=== PATIENT | male | born 1980 | race Caucasian/White ===

== ENCOUNTER 2017-09-27 23:47 | Emergency (ER) | payer BC | END 2017-09-28 01:09 | disposition home or self-care (01) | LOC: ERS 23:47 | DX: L01.00 Impetigo, unspecified (principal); L73.9 Follicular disorder, unspecified; F41.9 Anxiety disorder, unspecified; F90.9 Attention-deficit hyperactivity disorder, unspecified type; Z79.899 Other long term (current) drug therapy | CPT/HCPCS: 99282 ==

== ENCOUNTER 2018-08-03 07:18 | Emergency (ER) | payer MEDICAID ==
--- NOTE | 2018-08-03 08:02 | RAD ---
LEFT KNEE RADIOGRAPHS 4 VIEWS: DATE: 08/03/2018. PROVIDED CLINICAL HISTORY: Knee pain status post injury. FINDINGS: There is a tiny curvilinear thin metallic density seen projecting over the expected location of the p opliteal fossa. This measures about 4-5 mm. There is no evidence for a fracture or other acute osse ous abnormality. Alignment appears anatomic. Joint spaces appear preserved. IMPRESSION: 1. No evidence for an acute osseous abnormality. If there is persistent clinical concern, conservat obie management and followup imaging are advised. 2. Age-indeterminate soft tissue foreign body as above. POS: OFF
[2018-08-03] MEDS ORDERED: Ketorolac Tromethamine 60 MG/2 ML VIAL ONE (08:32)
== END 2018-08-03 08:58 | disposition home or self-care (01) ==
LOC: ERS 07:18 → EDUNIT# 07:18 → ERS 08:58
DX: S39.012A Strain of muscle, fascia and tendon of lower back, initial encounter (principal); M25.562 Pain in left knee; F90.9 Attention-deficit hyperactivity disorder, unspecified type; Z79.899 Other long term (current) drug therapy; W19.XXXA Unspecified fall, initial encounter
CPT/HCPCS: 96372; J1885

== ENCOUNTER 2018-08-28 02:06 | Emergency (ER) | payer MEDICAID ==
[2018-08-28 02:49] LABS: #Eosinphils 0.1 thou/uL (0.0-0.7); #Lymphocytes 2.4 thou/uL (1.20-3.40); #Monocytes 0.6 thou/uL (0.11-0.59); #Neutrophils 5.4 thou/uL (1.40-6.50); %Basophils 0.4 % (0.0-1.0); %Eosinophils 1.5 % (0.0-10.0); %Lymphocytes 28.4 % (21.0-51.0); %Monocytes 6.5 % (0.0-10.0); %Neutrophils 63.3 % (42.0-75.0); Hemoglobin 12.3 g/dL (14.0-18.0); Mean Corpuscular HGB CONC 32.9 g/dL (32.0-36.0); Mean Corpuscular Hemoglobin 26.5 pg (27.0-31.0); Mean Corpuscular Volume 80.6 fL (78.0-98.0); Mean Platelet Volume 7.3 fL (7.4-10.4); Platelet Count 231 thou/uL (130-400); RBC Distribution Width 14.2 % (11.5-14.5); Red Blood Cell (RBC) Count 4.66 mill/uL (4.70-6.10); White Blood Cell (WBC) Count 8.6 thou/uL (4.8-10.8)
[2018-08-28 03:10] LABS: ALT (SGPT) 23 U/L (8-55); AST (SGOT) 23 U/L (5-34); Albumin 3.8 g/dL (3.5-5.0); Alkaline Phosphatase 64 U/L (40-150); Anion Gap 13 mmol/L (10-20); BUN (Urea Nitrogen) 11 mg/dL (8.9-20.6); Bilirubin, Total 0.9 mg/dL (0.2-1.2); Calc. Creatinine Clearance 0 mL/min (70-130); Calcium 9.2 mg/dL (7.8-10.44); Carbon Dioxide 24 mmol/L (22-29); Chloride 106 mmol/L (98-107); Estimated GFR-MDRD Greater than 90; Globulin 3.3 g/dL (2.4-3.5); Glucose 81 mg/dL (70-105); Potassium 3.6 mmol/L (3.5-5.1); Protein, Total 7.1 g/dL (6.0-8.3); Sodium 139 mmol/L (136-145)
[2018-08-28] MEDS ORDERED: Ketorolac Tromethamine 30 MG/ML VIAL ONE (04:59)
[2018-08-28] MEDS ORDERED: Diazepam 5 MG TAB PO SCH (05:30)
--- NOTE | 2018-08-28 08:56 | RAD ---
CHEST 2 VIEWS: Date: 08/28/18 HISTORY: Chest pain. FINDINGS: Left-sided pedicle screws are noted stabilizing the mid thoracic spine. Heart size is normal. The davian gs are clear. IMPRESSION: No acute intrathoracic disease. POS: TPC
== END 2018-08-28 06:24 | disposition home or self-care (01) ==
LOC: ERS 02:06
DX: F41.9 Anxiety disorder, unspecified (principal); R07.89 Other chest pain; F90.9 Attention-deficit hyperactivity disorder, unspecified type; Z79.899 Other long term (current) drug therapy
CPT/HCPCS: 36415; 71046; 80053; 84484; 85025; 93005; 96372; J1885

== ENCOUNTER 2018-10-18 04:35 | Emergency (ER) | payer OTHER ==
[2018-10-18] MEDS ORDERED: Diazepam 5 MG TAB ONE (05:30)
[2018-10-18] MEDS ORDERED: Ketorolac Tromethamine 60 MG/2 ML VIAL ONE (05:30)
== END 2018-10-18 06:00 | disposition home or self-care (01) ==
LOC: ERS 04:35
DX: M62.838 Other muscle spasm (principal); F90.9 Attention-deficit hyperactivity disorder, unspecified type; F41.9 Anxiety disorder, unspecified; Z79.899 Other long term (current) drug therapy
CPT/HCPCS: 96372; J1885

== ENCOUNTER 2018-10-25 06:09 | Emergency (ER) | payer OTHER ==
[2018-10-25] MEDS ORDERED: Ketorolac Tromethamine 30 MG/ML VIAL ONE (06:23)
[2018-10-25] MEDS ORDERED: Cyclobenzaprine 10 MG TAB ONE (06:23)
[2018-10-25] MEDS ORDERED: Acetaminophen 500 MG TAB ONE (06:23)
--- NOTE | 2018-10-25 07:47 | RAD ---
Radiograph left knee 4 views: HISTORY: 38-year-old male with traumatic left knee pain due to fall FINDINGS: No fracture or dislocation. No DJD. No joint effusion. Enthesophyte at anterior superior pole of hernandez lla. No other osseous abnormality. IMPRESSION: Negative
--- NOTE | 2018-10-25 07:52 | RAD ---
RADIOGRAPH CHEST AND LEFT RIBS 4 VIEW: DATE: 10/25/2018 HISTORY: 38-year-old male with delayed posttraumatic left rib pain due to fall. FINDINGS: There are no airspace densities, pulmonary edema, pneumothorax, or cardiomegaly. The lateral costophr enic angles are sharp. Unilateral left pedicle screws at 2 levels in the midthoracic spine. No left rib fracture identified. IMPRESSION: 1. No acute cardiopulmonary findings. 2. No left rib fracture identified.
== END 2018-10-25 07:59 | disposition home or self-care (01) ==
LOC: ERS 06:09
DX: S22.32XA Fracture of one rib, left side, initial encounter for closed fracture (principal); S80.02XA Contusion of left knee, initial encounter; F41.9 Anxiety disorder, unspecified; F90.9 Attention-deficit hyperactivity disorder, unspecified type; Z79.899 Other long term (current) drug therapy; W01.198A Fall on same level from slipping, tripping and stumbling with subsequent striking against other object, initial encounter
CPT/HCPCS: 96372; J1885

== ENCOUNTER 2018-12-05 19:23 | Emergency (ER) | payer OTHER ==
[2018-12-05] MEDS ORDERED: Ondansetron ODT 4 MG TAB ONE (19:39)
== END 2018-12-05 20:33 | disposition home or self-care (01) ==
LOC: ERS 19:23
DX: J18.9 Pneumonia, unspecified organism (principal); F31.9 Bipolar disorder, unspecified; F41.9 Anxiety disorder, unspecified; F90.9 Attention-deficit hyperactivity disorder, unspecified type; M48.00 Spinal stenosis, site unspecified; M19.90 Unspecified osteoarthritis, unspecified site; Z79.899 Other long term (current) drug therapy
CPT/HCPCS: 99283; Q0162